=== PATIENT | male | born 1980 | race Caucasian/White ===

== ENCOUNTER 2023-05-04 14:06 | Emergency (ER) | payer OTHER ==
[2023-05-04 14:25] VITALS: BP 132/82; PULSE 80; RESP 18; TEMP 98.3; BMI 36.8
== END 2023-05-04 17:48 | disposition home or self-care (01) ==
LOC: JER 14:06
DX: R20.2 Paresthesia of skin (principal)
CPT/HCPCS: 93005; 93010; 99283-25